=== PATIENT | female | born 2000 | race Caucasian/White ===

== ENCOUNTER 2023-07-20 15:20 | Outpatient (REF) | payer OTHER, SELFPAY ==
[2023-07-23 15:35] LABS: Chlamydia Result Negative (Negative); GC Result Negative (Negative)
== END 2023-07-20 15:21 | disposition home or self-care (01) ==
LOC: LBN 15:20
PROVIDERS: PCP Family Medicine; Visit Provider Nurse Practitioner Family
DX: N76.0 Acute vaginitis (principal)
CPT/HCPCS: 87491; 87591; 87480; 87510; 87660